=== PATIENT | female | born 1970 | race Caucasian/White ===

== ENCOUNTER 2016-02-29 13:15 | Observation (INO) | payer OTHER ==
[2016-03-07] MEDS ORDERED: LR 1,000 ML IV SCH ×2 (07:00→10:30)
[2016-03-07] MEDS ORDERED: ceFAZolin 2 GM/DEXTROSE 100 ML IV ONE (07:00)
[2016-03-07] MEDS ORDERED: LIDOCAINE 1% 30 ML SDV ONE (09:04)
[2016-03-07] MEDS ORDERED: METHYLENE BLUE 0.5% 50 MG/10 ML AMP ONE (09:05)
[2016-03-07] MEDS ORDERED: BUPIVACAINE 0.25% 30 ML SDV ONE (09:05)
[2016-03-07] MEDS ORDERED: VASOPRESSIN 20 UNIT/ML VIAL ONE (09:05)
[2016-03-07] MEDS ORDERED: fentaNYL 100 MCG/2 ML INJ ONE ×3 (10:08→12:42)
[2016-03-07] MEDS ORDERED: PROPOFOL 200 MG/20 ML VIAL ONE (10:08)
[2016-03-07] MEDS ORDERED: ONDANSETRON 4 MG/2 ML VIAL ONE (10:09)
[2016-03-07] MEDS ORDERED: LIDOCAINE 2% 5 ML SDV ONE (10:09)
[2016-03-07] MEDS ORDERED: MIDAZOLAM 2 MG/2 ML VIAL ONE (10:09)
[2016-03-07] MEDS ORDERED: DEXAMETHASONE 4 MG/ML VIAL ONE (10:09)
[2016-03-07] MEDS ORDERED: SUCCINYLCHOLINE CHLORIDE*ANESTHESIA ONLY*200 MG/10 ML SYR IVP ONE (10:11)
[2016-03-07] MEDS ORDERED: ROCURONIUM 50 MG/5 ML VIAL ONE ×2 (10:13→10:21)
[2016-03-07] MEDS ORDERED: ONDANSETRON 4 MG/2 ML VIAL IVP PRN (10:15)
[2016-03-07] MEDS ORDERED: SCOPOLAMINE HYDROBROMIDE 1.5 MG PATCH TD ONE (10:46)
[2016-03-07] MEDS ORDERED: SUGAMMADEX SODIUM 200 MG/2 ML VIAL IVP ONE (11:31)
--- NOTE | 2016-03-07 13:41 | GOP ---
[f rep st] OPERATIVE REPORT DATE OF OPERATION: 03/07/2016 SURGEON: Kelly Preston MD PRIMARY CARE PROVIDER: Haritha Coleman MD. ANESTHESIA: General. PREOPERATIVE DIAGNOSIS: Dysfunctional uterine bleeding. POSTOPERATIVE DIAGNOSIS: Dysfunctional uterine bleeding. PROCEDURE PERFORMED: Laparoscopic-assisted vaginal hysterectomy and bilateral salpingectomy. FINDINGS: Normal ovaries and fallopian tubes. 8-week size uterus with boggy texture and inflammation over the serosa. Normal cervix. Also on cystoscopy, bilateral ureteral jets are seen and normal bladder. SPECIMENS: Uterus, cervix, bilateral fallopian tubes. ESTIMATED BLOOD LOSS: Less than 100 mL. INDICATIONS: A 45-year-old female who had long-standing history of pelvic pain. She has longstanding history of dysfunctional uterine bleeding and that did not resolve with oral contraceptive pills or IUDs. Desires surgical management. DESCRIPTION OF PROCEDURE: The patient was taken the operating room. She was prepped and draped in normal sterile fashion, in the low dorsal lithotomy position. A surgical time-out was performed, verifying the patient's name, date of , procedure, site. The patient received 2 g of Ancef preoperatively. A bivalve speculum was placed in the patient's vagina. The anterior aspect of the cervix was grasped with a single-tooth tenaculum. Uterine manipulator was then placed into the uterine canal. The bivalve speculum was removed. Gloves were changed. The umbilicus was injected with 0.25% Marcaine. A 10 mm incision was made with 11 blade scalpel. The subcutaneous tissue was dissected down to the fascia. The fascia was tented up and incised with a 15 blade scalpel. The fascia was tight tagged with 0 Vicryl. The peritoneum was identified, tented up, and entered in sharply. The Yesenia port was placed in the patient's abdominal cavity. The patient was placed in Trendelenburg. The abdomen was insufflated. Approximately 5 cm to the patient's right of the umbilicus and 2 cm caudad, the skin was then transilluminated and injected with 0.25% Marcaine. A 5 mm incision was made with the 11 blade scalpel. The same procedure was performed on the patient's left side. Visualization of the abdominopelvic cavity revealed no pelvic adhesive disease. She had normal fallopian tubes, ovaries bilaterally. Her uterus was 8 weeks in size and had a reactive-appearing serosa. The left fallopian tube was grasped. The mesosalpinx was incised. The uterine ovarian ligament was incised. The round ligament was incised. The anterior and posterior leaves of the broad ligament were incised, and the anterior leaf of the broad ligament was incised, and a bladder flap was created digitally. The uterine arteries were cauterized and incised on the left side. The same procedure was then performed on the right. The vaginal portion then took place. The patient was placed in high lithotomy position. A short-weighted speculum was placed in the patient's vagina. The cervix was grasped with Bansal tenacula x2. Cervical vaginal junction was injected with dilute vasopressin. The vaginal epithelium was incised with a 10 blade scalpel. The vagina was dissected off the anterior and posterior aspect of the cervix with blunt dissection. The posterior peritoneum was identified and entered in sharply. The posterior peritoneum was tacked with 0 Vicryl to the vaginal cuff. The long-weighted speculum placed in the patient's vagina. The bladder was further dissected on the anterior aspect of the cervix. The bilateral utero-ovarian ligaments were bilaterally clamped, cut, and suture ligated. The remaining portion of the cardinal ligaments bilaterally clamped, cut, and suture ligated, and the uterus was removed. The patient was noted to have hemostasis. The patient received methylene blue for visualization in the ureteral jets. The vaginal cuff was closed with 0 Vicryl in a running, locked fashion. Hemostasis was noted. Cystoscopy was performed. Bilateral ureteral jets were seen. There bladder appeared normal. The gown and gloves were changed. The abdomen was insufflated. Copious irrigation of the pelvic cavity and the vaginal cuff was performed, and the patient had a hemostatic vaginal cuff and pedicles. The trocars were removed under direct visualization. Abdomen was exsufflated. The fascia was reapproximated with 0 Vicryl. The skin was closed with 4-0 Monocryl. All counts were correct x2. COMPLICATIONS: None. OUTCOME: Stable to recovery room. /[id number]/MODL MTDD
[2016-03-07] MEDS: HYDROCODONE/APAP 5/325 TAB PO PRN ×2 (16:01→20:23)
[2016-03-07] MEDS: KETOROLAC 30 MG/1 ML SDV IVP SCH ×2 (16:02→17:58)
[2016-03-07] MEDS ORDERED: ALPRAZolam 0.25 MG TAB PO SCH (21:00)
[2016-03-07] MEDS ORDERED: ALPRAZolam 0.5 MG TAB PO SCH (21:15)
[2016-03-07] MEDS: DOCUSATE SODIUM 100 MG CAP PO SCH (21:31)
[2016-03-08] MEDS: HYDROCODONE/APAP 5/325 TAB PO PRN ×4 (00:07→12:23)
[2016-03-08] MEDS: KETOROLAC 30 MG/1 ML SDV IVP SCH ×2 (00:08→06:09)
[2016-03-08 01:59] VITALS: RESP 16
[2016-03-08 07:00] LABS: % IMMATURE GRANULYOCYTES 0.3 % (0.0-1.1); ABSOLUTE IMMATURE GRANULOCYTES 0.03 10^3/uL (0.00-0.10); ADD DIFF? NO; ADD MORPH? NO; ADD SCAN? NO; ATYPICAL LYMPHOCYTE FLAG 0 (0-99); FRAGMENT RBC FLAG 0 (0-99); HEMOGLOBIN 12.8 g/dL (12.6-16.3); LEFT SHIFT FLG 0 (0-99); LIPEMIA HEMOLYSIS FLAG 80 (0-99); MEAN CELL HEMOGLOBIN 33.2 pg (27.9-34.1); MEAN CELL HEMOGLOBIN CONCENTR. 33.7 g/dL (32.4-36.7); MEAN CELL VOLUME 98.7 fL (81.5-99.8); MEAN PLATELET VOLUME 11.3 fL (8.7-11.7); PLATELET CLUMPS FLAG 0 (0-99); PLATELET COUNT 200 10^3/uL (150-400); RED BLOOD CELL COUNT 3.85 10^6/uL (4.18-5.33); RED CELL DISTRIBUTION WIDTH 11.9 % (11.5-15.2)
[2016-03-08] MEDS: DOCUSATE SODIUM 100 MG CAP PO SCH (08:42)
--- NOTE | 2016-03-08 08:49 | SOAPPROG ---
SOAP Progress Note Assessment/Plan: Assessment: 45 y/o female POD#1 s/p LAVH/salpingectomy - hemodynamically stable and doing well Plan: 1) Routine postop care 2) Mild dizziness - unclear if from norco (wearing off), dehydration or side effect from scopolamine patch. HCT stable and vital stable. Will give IVF bolus and monitor. 3) Discharge home later today pending further discharge criteria met 4) RX for motrin/norco, F/U in 2 weeks w/ [facility] 5) RX albuterol for mild wheezing, hx asthma 03/08/16 08:49 Objective: Vital Signs Temp Pulse Resp BP Pulse Ox 36.6 C 59 L 16 100/71 96 03/08/16 06:00 03/08/16 07:00 03/08/16 06:00 03/08/16 07:00 03/08/16 06:00 Laboratory Results 03/08/16 06:45 03/07/16 03/08/16 03/09/16 05:59 05:59 05:59 Intake Total 5100 Output Total 1850 Balance 3250 Physical Exam - Physical Exam General Appearance: WD/WN, alert, no apparent distress Respiratory: lungs clear, wheezing (mild wheezing) Cardiac/Chest: regular rate, rhythm Abdomen: normal bowel sounds, non-tender, soft, other (incisions c/d/i) ICD10 Worksheet Patient Problems: Problems Problem Status Diagnosed S/P hysterectomy Acute
[2016-03-08] MEDS ORDERED: ALBUTEROL 60 PUFFS/8 GM MDI IH PRN (08:50)
[2016-03-08] MEDS ORDERED: LR 1,000 ML IV ONE (08:50)
[2016-03-08] MEDS: IBUPROFEN 600 MG TAB PO SCH ×2 (11:53→12:22)
[2016-03-08 14:27] VITALS: BP 103/67; PULSE 66; TEMP 98.4; O2SAT 98
== END 2016-03-08 14:20 | disposition home or self-care (01) ==
LOC: F3E 03-07 07:44 → FOB 03-07 13:57
PROVIDERS: ADMIT Obstetrics & Gynecology; ATTEND Obstetrics & Gynecology
PROC: 0UTC7ZZ Resection of Cervix, Via Natural or Artificial Opening (ICD-10-PCS; principal; 2016-03-07 09:15)
PROC: 0UT7FZZ Resection of Bilateral Fallopian Tubes, Via Natural or Artificial Opening With Percutaneous Endoscopic Assistance (ICD-10-PCS; principal; 2016-03-07 09:15)
PROC: 0UT97ZZ Resection of Uterus, Via Natural or Artificial Opening (ICD-10-PCS; principal; 2016-03-07 09:15)
DX: N93.8 Other specified abnormal uterine and vaginal bleeding (principal)
CPT/HCPCS: 58552; G0378; J0330; J0690; J1100; J1885; J2250; J2405; J2704; J3010

== ENCOUNTER → 2017-11-15 | Outpatient (CLI) | payer OTHER | LOC: FIMAGING 10:25 | PROVIDERS: ATTEND Orthopaedic Surgery | DX: S99.812A Other specified injuries of left ankle, initial encounter (principal) ==

== ENCOUNTER → 2018-05-29 | Outpatient (CLI) | payer OTHER | LOC: FIMAGING 12:50 | PROVIDERS: ATTEND Obstetrics & Gynecology | DX: Z87.2 Personal history of diseases of the skin and subcutaneous tissue (principal); N64.4 Mastodynia; N63.10 Unspecified lump in the right breast, unspecified quadrant; N63.20 Unspecified lump in the left breast, unspecified quadrant ==